=== PATIENT | female | born 1990 | race Two or more races ===

== ENCOUNTER 2024-06-06 00:43 | Emergency (ER) | payer OTHER ==
[~2024-06-06] VITALS: Ht 167.6 cm; Wt 59.0 kg
[2024-06-06] MEDS ORDERED: WELLBUTRIN SR100 MG PO (01:17)
[2024-06-06] MEDS ORDERED: ADDERALL 10 MG10 MG PO (01:17)
[2024-06-06] MEDS ORDERED: KETOROLAC TROMETHAMINE 30 MG VIAL IV STA (02:19)
[2024-06-06] MEDS ORDERED: CEFTRIAXONE SODIUM 1,000 MG VIAL IV STA (02:19)
[2024-06-06] MEDS ORDERED: 0.9 % SODIUM CHLORIDE 500 ML IV ONE (02:30)
[2024-06-06 03:19] LABS: HEMATOCRIT 36.6 % (36.0-45.00); HEMOGLOBIN 12.7 g/dL (12.0-15.00); MEAN CELL VOLUME 92.9 fL (80.00-100.00); MEAN CORPUSCULAR HEMOGLOBIN 32.1 pg (27.00-32.0); MEAN CORPUSCULAR HGB CONC 34.6 g/dl (32.0-36.0); PLATELET COUNT 250 K/uL (150-450); RED BLOOD COUNT 3.94 M/uL (4.00-6.00); RED CELL DISTRIBUTION WIDTH 12.8 % (11.5-14.5)
[2024-06-06 03:27] LABS: CALCIUM 8.8 mg/dL (8.5-10.1); CREATININE SERUM 0.87 mg/dL (0.55-1.02); GFR 74.09; POTASSIUM 4.25 mEq/L (3.5-5.1)
[2024-06-06] MEDS ORDERED: CEPHALEXIN250 MG/5 M PO (05:41)
[2024-06-06] MEDS ORDERED: INTESTINEX680 M1 PO (05:41)
[2024-06-06] MEDS ORDERED: ORASEP SPRAY30 ML MM (05:41)
[2024-06-06] MEDS ORDERED: DOLOGESIC-DF 51 EACH PO (05:43)
== END 2024-06-06 05:59 ==
LOC: ER 00:43
PROVIDERS: General Practice
DX: S09.8XXA Other specified injuries of head, initial encounter (principal); W18.39XA Other fall on same level, initial encounter; Y93.89 Activity, other specified; Y92.89 Other specified places as the place of occurrence of the external cause; R19.7 Diarrhea, unspecified; S02.5XXA Fracture of tooth (traumatic), initial encounter for closed fracture